=== PATIENT | male | born 1935 | race Caucasian/White ===

== ENCOUNTER 2024-08-23 10:47 | Inpatient (IN) | payer MEDICARE, OTHER ==
[~2024-08-23] VITALS: Ht 177.8 cm; Wt 63.3 kg
[~2024-08-23 10:47] MED LIST: ASPI-1265 PO; LEVO50TA8 PO; LOVA10TA PO
--- NOTE | 2024-08-23 11:00 | ELECTROCARDIOGRAPH REPORT ---
[facility] Test Date: 2024-08-23 Test Time: 10:58:51 Pat Name: SELVIN WARD Department: EMERGENCY ROOM Room: ORTHO [facility] Gender: M [employer] Installer: MICAH : 1935 Requested By: ROMAN MILLER Order Number: [id number] Reading MD: Dr. Paul Monreal Measurements Intervals [place] Rate: 58 P: 32 [place]: 184 QRS: -51 QRSD: 126 T: 14 QT: 432 QTc: 425 Interpretive Statements Sinus bradycardia Nonspecific IVCD with LAD Consider anterior infarct Electronically Signed On 08-26-2024 18:35:[address] Paul Monreal Please click the below link to view image of tracing.
--- NOTE | 2024-08-23 11:14 | RADIOLOGY REPORT ---
CHEST RADIOGRAPH Indication: CP Technique: Single frontal view of the chest was obtained COMPARISON: None FINDINGS: Lines and Tubes: None Lungs: Clear Pleura: No effusion. No pneumothorax. Cardiomediastinal contours: Unremarkable Bones: Unremarkable IMPRESSION: No acute disease.
[2024-08-23 11:21] LABS: HEMOGLOBIN 9.7 g/dl (14.0-17.9); LYMPHOCYTES # (AUTO) 1.1 X10'3 (1.1-4.8); MEAN PLATELET VOLUME 7.6 FL (7.4-10.4); MONOCYTES # (AUTO) 0.2 X10'3 (0-0.9); NEUTROPHILS # (AUTO) 1.8 X10'3 (1.8-7.7); WHITE BLOOD COUNT 3.2 X10'3 (4.5-11.0)
[2024-08-23 11:23] LABS: BASOPHILS % (AUTO) 0.9 % (0-1); EOSINOPHILS % (AUTO) 0.9 % (0-6); HEMATOCRIT 28.8 % (42.0-52.0); MEAN CORPUSCULAR HEMOGLOBIN 29.4 PG (27.0-31.0); MEAN CORPUSCULAR HGB CONC 33.6 g/dL (33.0-36.5); MEAN CORPUSCULAR VOLUME 87.6 FL (78-98); MONOCYTES % (AUTO) 7.4 % (2-12); NEUTROPHILS % (AUTO) 56.8 % (42-75); PLATELET COUNT 236 X10'3 (140-440); RED BLOOD COUNT 3.29 X10'6 (4.70-6.10); RED CELL DISTRIBUTION WIDTH 17.6 % (11.5-14.5)
[2024-08-23 12:02] LABS: ALBUMIN 3.5 G/DL (3.4-5.0); ANION GAP 8 (8-16); BLOOD UREA NITROGEN 18 MG/DL (7-18); BUN/CREATININE RATIO 15.8 (10.0-20.0); CHLORIDE 103 MMOL/L (99-107); CREATININE 1.14 MG/DL (0.60-1.10); SODIUM 136 MMOL/L (135-145); TOTAL CARBON DIOXIDE 25.2 MMOL/L (24-32); eCRCL 42 ML/MIN; eGFR 61 ML/MIN
[2024-08-23 12:04] LABS: GLUCOSE 108 MG/DL (70-104)
--- NOTE | 2024-08-23 12:08 | Physician Documentation ---
History of Present Illness ~ Chief Complaint: Shortness of Breath Stated Complaint: SOB Time Seen by MD: 11:43 Primary Medical Doctor: EMETERIO CURRIE HPI 88-year-old male presenting with shortness of breath. The patient reports that is approximately a six days ago he was playing golf when as he walked across the golf course he noticed he is getting more short of breath than usual. He states that this kind of continued throughout the day and he later went home and did not think much of it. Since that time he notices that when he is exerting himself he is getting more short of breath than usual. The shortness of breath and resolves with rest. He otherwise denies any chest pain, cough, fever or any other associated symptoms. Medication Reconciliation Allergies: Coded Allergies: No Known Allergies (Unverified , 01/25/14) Scheduled Cholestyramine (with Sugar) (Cholestyramine Powder), 1 PACKET PO DAILY, (Reported) Levothyroxine Sodium (Levothyroxine Sodium), 1 TABLET PO DAILY, (Reported) Lovastatin (Mevacor), 10 MG PO HS, (Reported) Pantoprazole Sodium (PROTONIX tablet), 40 MG PO BID Rosuvastatin Calcium (Rosuvastatin Calcium), 1 TAB PO DAILY, (Reported) Discontinued Medications Aspirin (Aspirin), 2 TAB.CHEW PO DAILY, (Reported) Past Medical History Past Surgical History: cancer surgery Other Past Surgical History: Lymph nodes removed Alcohol Use: None Drug Use: none Lives with: Spouse Lives In: Home Review of Systems All Other Systems at this time: Reviewed and Negative Physical Exam Vital Signs: Temperature: 97.6, Source: Temporal, Heart Rate: 59, Respiratory Rate: 15, BP: 137/71, Pulse Oximetry: 100, Weight: 63.300 Physical Exam I have reviewed the triage vitals. CONST: Well developed and well nourished. In no acute distress HENT: Head Atraumatic EYES: Pupils are equal, round and reactive to light. Normal conjunctiva NECK: Normal range of motion. Supple. CARDIO: Normal rate and regular rhythm. No murmurs, rubs, or gallops. S1, S2. PULM/CHEST: No respiratory distress. Lungs clear to auscultation. No wheeze ABD: Soft and nontender. Nondistended. Bowel sounds normal. No guarding. Rectal: External hemorrhoids present MSK: No edema. No deformity. NEURO: Alert and oriented to person, place and time. Moving all extremities SKIN: Warm and dry. PSYCH: Normal mood and affect. Good eye contact. Progress Results/Orders Results/Orders Orders - ROMAN MILLER MD Chest,Single View (08/23/24 10:56) Monitor (08/23/24 10:56) Saline Lock (08/23/24 10:56) Oxygen (08/23/24 10:56) Electrocardiogram (08/23/24 10:56) Hs Troponin I W Calculations (08/23/24 13:56) Page Hospitalist (08/23/24 13:56) Fill Out Med Reconciliation (08/23/24 13:56) Page Hospitalist (08/23/24 14:01) Fill Out Med Reconciliation (08/23/24 14:01) Completed Orders - ROMAN MILLER MD Chest,Single View (08/23/24 10:56) Cbc/Diff (08/23/24 10:56) BMP (08/23/24 10:56) Electrocardiogram (08/23/24 10:56) Hs Troponin I W Calculations (08/23/24 10:56) Hs Troponin I W Calculations (08/23/24 12:56) Occult Bld Stool (08/23/24 13:41) Pt Inr (08/23/24 14:04) PTT (08/23/24 14:04) Pantoprazole 40mg/Ns 100ml Bag (Protonix (08/23/24 16:00) MG (08/23/24 11:04) PHOS (08/23/24 11:04) TSH (08/23/24 11:04) Hgb A1c (08/23/24 11:04) Laboratory Tests Test 08/23/24 11:04 08/23/24 13:08 White Blood Count 3.2 L Red Blood Count 3.29 L Hemoglobin 9.7 L Hematocrit 28.8 L Mean Corpuscular Volume 87.6 Mean Corpuscular Hemoglobin 29.4 Mean Corpuscular Hemoglobin Concent 33.6 Red Cell Distribution Width 17.6 H Platelet Count 236 Mean Platelet Volume 7.6 Neutrophils (%) (Auto) 56.8 Lymphocytes (%) (Auto) 34.0 Monocytes (%) (Auto) 7.4 Eosinophils (%) (Auto) 0.9 Basophils (%) (Auto) 0.9 Neutrophils # (Auto) 1.8 Lymphocytes # (Auto) 1.1 Monocytes # (Auto) 0.2 Eosinophils # (Auto) 0.0 Basophils # (Auto) 0.0 CBC Comment Prothrombin Time 10.3 INR International Normalized Ratio 1.0 Activated Partial Thromboplast Time 25 Coagulation Comments Sodium Level 136 Potassium Level 4.0 Chloride Level 103 Carbon Dioxide Level 25.2 Anion Gap 8 Blood Urea Nitrogen 18 Creatinine 1.14 H Estimated GFR/1.73 m2 61 BUN/Creatinine Ratio 15.8 Glucose Level 108 H Hemoglobin A1c 4.5 Calcium Level 9.0 Phosphorus Level 2.8 Magnesium Level 1.9 Troponin I High Sensitivity 10 7 Pro-B-Type Natriuretic Peptide 238 Albumin 3.5 Thyroid Stimulating Hormone (TSH) 5.33 H Chemistry Comments Troponin I High Sens Percent Delta 30 Troponin I Hi Sens Absolute Change -3 EKG/XRAY/CT/US/VASC/MRI EKG : Additional Comment EKG as interpreted by me showing normal sinus rhythm with slight sinus bradycardia at a rate of 58 beats per minute, no ischemia, normal axis Chest X-Ray : Additional Comments CHEST RADIOGRAPH Indication: CP Technique: Single frontal view of the chest was obtained COMPARISON: None FINDINGS: Lines and Tubes: None Lungs: Clear Pleura: No effusion. No pneumothorax. Cardiomediastinal contours: Unremarkable Bones: Unremarkable IMPRESSION: No acute disease. Medical Decision Making Additional Infomation 88-year-old male presenting with intermittent shortness of breath with activity. His lab workup does indicate a low hemoglobin of 9.7. This is likely what is causing his shortness of breath. Upon further questioning the patient states that he had some hemorrhoids that has been bleeding for several months. He reports that the bleeding recently decreased as he stopped taking 81 mg daily aspirin as was directed by his primary care physician. Additionally he indicated to me that for some period of time he was having some dark black stools. Remainder of the patient's blood work is unremarkable. Stool occult blood test was positive. I did discuss this case with Dr. Corona, GI specialist who recommended that we admit the patient for a colonoscopy and possibly upper GI endoscopy. I discussed this with the patient and he is amenable for this. Patient will be admitted to the inpatient hospitalist service. Departure Disposition: ADMITTED INPATIENT Admitted to Inpatient Unit: to hospitalist Impression: Primary Impression: Anemia Additional Impression: GI bleed Referrals: NO PRIMARY CARE PROVIDER (PCP) Prescriptions Pantoprazole Sodium (PROTONIX tablet) 40 Mg Tablet.dr 40 MG PO BID, #60 TAB.SR Prov: VASHTI SANTIAGO, LILIANA 08/25/24 [facility] Form Admit Criteria Met or Not Met: YES Signature Scribe Signature: 1 Attestation: 1 ROMAN MILLER MD Aug 23, 2024 12:08
[2024-08-23 14:25] LABS: APTT 25 SECONDS (22-32); PROTHROMBIN TIME 10.3 SECONDS (9.0-12.0)
[2024-08-23] MEDS ORDERED: magnesium hydroxide 30ml (MOM) UD suspension PO PRN (15:50)
[2024-08-23] MEDS ORDERED: magnesium sulf-water 4G/100mL 100 ML IV PRN (15:50)
[2024-08-23] MEDS ORDERED: metoclopramide 5 mg/ml inj IV PRN (15:50)
[2024-08-23] MEDS ORDERED: mag hydrox/Alum hydrox/simeth 30ml oral suspension PO PRN (15:50)
[2024-08-23] MEDS ORDERED: potassium Cl 20 mEq SR tablet PO PRN ×2 (15:50)
[2024-08-23] MEDS ORDERED: acetaminophen 325mg tablet PO PRN (15:50)
[2024-08-23] MEDS ORDERED: docusate sod 100mg capsule PO PRN (15:50)
[2024-08-23] MEDS ORDERED: magnesium sulf-water 2g/50mL 50 ML IV PRN (15:50)
[2024-08-23] MEDS ORDERED: potassium Cl 40MEQ/1/2NS 520ml 520 ML IV PRN (15:50)
[2024-08-23] MEDS ORDERED: magnesium Cl slow-release 64mg tablet PO PRN (15:50)
[2024-08-23] MEDS ORDERED: morphine 2 MG/ML inj. syringe IV PRN ×2 (15:50)
[2024-08-23] MEDS ORDERED: ondansetron/PF 4mg/2ml inj IV PRN (15:50)
[2024-08-23] MEDS ORDERED: pantoprazole 40MG/NS 100ML BAG 100 ML IV SCH (16:00)
--- NOTE | 2024-08-23 16:12 | HISTORY AND PHYSICAL-Residence ---
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 He is living with his spouse at his home. He is seeing PCP Dr Lutz, at [facility]. He is still driving and enjoying his life with pretty active sports. He is fully ambulatory. He endorsed that he started having sudden shortness of breath along with slight lightheadeness and dizziness since last Thursday while he was walking around and playing golf made him stopped playing. He denies any hx of orthopnea, PND, hemoptysis, bilateral pedal edema, chest pressure discomfort and radiating pain, palpitations, nausea and vomiting. He felt the generalized weakness and tiredness since Last Thursday. He never experienced that sort of feeling before. He started taking baby ASA since last 6 months and stopped taking it a month ago. He occasionally drinks alcohol one or two per month. He denied using any OTC NSAIDs. He noticed that black colored stool a week ago and still having one time per day. He denies any H&M, black colored emesis, abd pain and LBM. He did not take any colored food and iron tablets on daily basic. He was bleeding per rectum from his hemorrhoids but it became less when he started ASA on last 6 months. Never diagnosed with recent cancer and treated with therapy. He denied any recent unintentional dramatic weight loss and declining appetitie and night sweat with low grade fever. 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 He is seeing PCP Dr Lutz, at [facility]. He is still driving and enjoying his life with pretty active sports. He is fully ambulatory. He is a lifetime nonsmoker, did not use any illicit drugs. He drinks one two to light drinks in a month. Alcohol Use: None Drug Use: None Lives with: Spouse Lives In: Home ROS All Other Systems: Reviewed and Negative ROS ROS were reviewed WNL except for the above-mentioned in HPI Exam Vitals: Vital Signs Date Time Temp Pulse Resp B/P (MAP) Pulse Ox O2 Delivery O2 Flow Rate FiO2 08/23/24 12:08 16 08/23/24 12:08 97.6 47 100 0 General: General: Pleasant friendly gentleman, Well alert, well oriented, not confused, not agitated, not in acute distress, well cooperated during the physical. HEENT: HEENT: Conjunctive are slightly pale, sclerae clear, no icterus, pupil is equal in both sides, reactive to light, no ear discharge, no pharyngeal erythema or an edema, mouth and lips are dry. Neck: Neck: Supple, no JVD, no lymphadenopathy and thyromegaly. Chest: Lungs:Equal air entry on both lungs, no additional sounds Cardiovascular: Heart: S1-S2 regular sinus rhythm and, regular rate, no gallops, no rubs, no murmurs Abdomen: Abdomen: Left upper flank surgical scar, No visible peristalsis, Bowel sounds present on auscultation, soft, nontender, no guarding, no rigidity Extremities: Extremities: No obvious deformities, no pitting edema bilaterally, capillary refill intact, able to wiggle toes both sides, peripheral pulsations are intact on both sides Central Nervous System: MONOTYPE CASTER: No focal neurological deficits, no motor and sensory weakness in all 4 extremities, could move all 4 extremities Musculoskeletal: Musculoskeletal: No joint swelling, deformities, inflammations, and no scoliosis and back tenderness Skin: Skin: No active skin lesions and rashes Diagnostic Data Last Recorded Lab Results: 08/23/24 1104 08/23/24 1104 Diagnostic Data: Laboratory Tests Test 6/24/25 11:04 Prothrombin Time 10.3 SECONDS (9.0-12.0) INR International Normalized Ratio 1.0 INR Activated Partial Thromboplast Time 25 SECONDS (22-32) Coagulation Comments Advance Care Planning Advanced Care plannin - 30 Minutes Additional Plan An 88 years old very pleasant funny healthy man with past medical history of HLD, 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 # symptomatic normochromic normocytic anemia # Possible GI bleeding # Hx of hemorrhoids -last time colonoscopy was 3-5 years ago, did not report for any precancerous/cancerous/polyps lesions and was told to stopped the colonoscopy at the time. Did not remember for any last endoscopy. -FOBT still pending -Hold ASA -Dr Corona order desk caller GI was consulted and appreciate it- planning to have colonoscopy tomorrow -Currently on clear liquid as per pt's requested, and NPO after midnight and prep with GoLYTELY and Mg citrate solution over night. -On IV Protonix drip for possible Upper GI Bleeding and will consider endoscopy for any possible upper GI Bleeding -continue telemetry -IV NS 50 ml/hr # JAYA - mostly from the pre renal (Renal tubular stasis) -baseline was 0.6 in last 10 years -IV fluid, monitor I's and O's # Non specific leucopenia- mostly from hemodilution -monitor daily # HLD # Hypothyroidism # Hyperglycemia -Continue statin and Levothyroxine after med rec is done -most probably from the post radiation hypothyroidism -pending rechecked TSH, lipid profile and HGB A1c -continue daily RBS monitoring CODE STATUS: DNR DNI DVT prophylaxis: Sc heparin Analgesia/sedation: IV morphine as needed Lines/tubes: PIV GI prophylaxis: Protonix Nutrition: Clear liquid, NPO after midnight for colonoscopy tomorrow Prognosis: Guarded Disposition: Continue medical management including IV Protonix, fluids, colonoscopy overnight prep, proceed with plan tomorrow colonoscopy, follow up with GI, PT eval and DC plan. Resident MD attestation: Patient was seen, examined and discussed with attending MD, Dr. Kandi SANTIAGO MD Internal Medicine Resident, PGY2 [facility] Date of Service: Aug 23, 2024 Billing Provider: ASIM BAKER MD, TIN, RES Aug 23, 2024 16:12
[2024-08-23] MEDS ORDERED: magnesium citrate 296ml oral solution PO ONE (16:30)
[2024-08-23 17:00] LABS: MAGNESIUM 1.9 MG/DL (1.5-2.4); PHOSPHORUS 2.8 MG/DL (2.3-4.5); THYROID STIMULATING HORMONE 5.33 ulU/ml (0.34-4.50)
[2024-08-23] MEDS: normal saline 1000ml 1,000 ML IV SCH (17:04)
[2024-08-23] MEDS: PEG 3350/Na sulf,bicarb,Cl/KCl oral sol 4 liter bottle PO ONE (17:04)
[2024-08-23 17:17] LABS: HEMOGLOBIN A1C 4.5 % (4.5-6.2)
[2024-08-23 17:19] LABS: OCCULT BLOOD STOOL POSITIVE (Neg)
--- NOTE | 2024-08-23 17:44 | CONSULTATION REPORT - RESIDENT ---
Consult Providers to CC Resident Creating Document: JACKIEJavidCHRIS RES History of Present Illness Reason for Admit\Complaint: Dizziness, weakness History of Present Illness The patient is an 88-year-old male with a history of hyperlipidemia (HLD), right throat cancer with lymphadenopathy status post systemic chemotherapy and radiation therapy (XRT), hypothyroidism on levothyroxine, left renal cell carcinoma (RCC) status post partial nephrectomy, status post cholecystectomy, blood clot in the right arm, and chronic hemorrhoids, presenting with acute onset of generalized weakness, fatigue, shortness of breath (SOB), and melena for one week. Symptoms began last Thursday with sudden SOB, lightheadedness, and dizziness while playing golf, prompting cessation of activity. He reports black-colored stools occurring daily for the past week but denies hematochezia, bright red blood per rectum, hematemesis, or abdominal pain. He denies orthopnea, paroxysmal nocturnal dyspnea (PND), chest pain, nausea, vomiting, and significant weight loss. The patient has never undergone an esophagogastroduodenoscopy (EGD). His last colonoscopy, performed three years ago, was reported as normal. He denies NSAID use but reports taking low-dose aspirin (81 mg daily) for six months, which he discontinued one month ago. He has no history of dietary changes, iron supplementation, or consumption of foods that could mimic melena (e.g., black licorice, blueberries). The patient remains fully ambulatory, continues to drive, and leads an active lifestyle, including regular sports activities. 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 He is seeing PCP Dr Lutz, at [facility]. He is still driving and enjoying his life with pretty active sports. He is fully ambulatory. He is a lifetime nonsmoker, did not use any illicit drugs. He drinks one two to light drinks in a month. ROS ROS Reviewed in full, pertinent positive per HPI. Exam Vitals: Vital Signs Date Time Temp Pulse Resp B/P (MAP) Pulse Ox O2 Delivery O2 Flow Rate FiO2 08/23/24 17:23 97.6 55 16 106/55 (72) 98 0 General: General: awake, alert oriented to place, time, and person HEENT: Marked pallor present, no icterus, moist mucous membranes Neck: No masses and tenderness Resp: normal breath sounds bilaterally and no wheezing Chest: Normal expansion Cardiovascular: No murmur,regular Rate and rhythm, variable S1 and S2 without murmur, rub or gallop Abdomen: Soft and nontender, no organomegaly, no guarding and rigidity, bowel sounds present Neuro: No focal weakness in the upper and lower limb muscles, power of the muscles 5/5 bilateral upper and lower extremities, normal reflexes bilaterally. Cranial nerves intact Extremities: No lower extremity edema, No cyanosis,clubbing Skin: Warm and Dry. No lesions Psych: Normal affect Diagnostic Data Last Recorded Lab Results: 08/23/24 1104 08/23/24 1104 Diagnostic Data: Laboratory Tests Test 08/23/24 11:04 Prothrombin Time 10.3 SECONDS (9.0-12.0) INR International Normalized Ratio 1.0 INR Activated Partial Thromboplast Time 25 SECONDS (22-32) Coagulation Comments Additional Plan 1. Symptomatic Normochromic Normocytic Anemia with Possible GI Bleeding Likely secondary to a GI bleed, as suggested by melena and symptoms of fatigue and SOB. The source may be upper (gastritis, peptic ulcer) or lower GI. Never had an EGD; thus, upper GI bleeding cannot be excluded. Last colonoscopy (three years ago) was normal. Plan: Schedule colonoscopy tomorrow; bowel preparation with GoLYTELY and magnesium citrate starting tonight. Plan for EGD to evaluate potential upper GI bleeding. Initiate IV Protonix drip. Monitor hemoglobin/hematocrit (H/H) closely. FOBT pending to confirm the presence of a GI bleed. NPO after midnight in preparation for procedures. 2. Chronic Hemorrhoids May contribute to rectal bleeding but are unlikely the source of melena. Plan: Address during colonoscopy if significant findings are present. 3. Acute Kidney Injury (JAYA) Likely pre-renal in origin, given the baseline creatinine of 0.6 and evidence of tubular stasis. Plan: Administer IV fluids (NS at 50 mL/hr). Monitor urine output and daily renal function tests. 4. Leukopenia Likely secondary to hemodilution. Plan: Monitor complete blood count (CBC) daily. 5. Hyperlipidemia and Hypothyroidism Chronic conditions managed with current medications. 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 Plan: Continue statin and levothyroxine. Recheck TSH, lipid profile, and HbA1c. 6. Hyperglycemia Mild and possibly stress-induced or secondary to systemic response. Plan: Monitor random blood glucose (RBS) daily. Code status: DNR/DNI. DVT prophylaxis with SCDs. Analgesia with IV morphine as needed. Nutrition: Clear liquids today, NPO after midnight. Continue telemetry monitoring for hemodynamic stability. Prognosis: Guarded. Chris Link Resident Date of Service: Aug 23, 2024 Billing Provider: NESLON ALAN MD, GAURAV, RES Aug 23, 2024 17:44
[2024-08-23] MEDS: K and/or MAG REPLACEMENT MC SCH (20:00)
[2024-08-23] MEDS ORDERED: heparin, porcine 5000 units/ml vial SQ SCH (20:00)
[2024-08-23 21:05] VITALS: BP 143/44; PULSE 56; RESP 16; TEMP 97.5; O2SAT 99
[2024-08-23] MEDS ORDERED: ROSU5TAB51 PO (22:15)
[2024-08-23] MEDS ORDERED: CHOL378P14 PO (22:15)
[2024-08-23] MEDS: atorvastatin 10mg tablet PO SCH (22:25)
[2024-08-24] VITALS (11 sets, daily range): BP systolic 79–128; BP diastolic 33–74; PULSE 55–77; RESP 12–20; TEMP 97.5–98.7; O2SAT 95–100
[2024-08-24 05:23] LABS: EOSINOPHILS % (AUTO) 1.1 % (0-6); LYMPHOCYTES # (AUTO) 1.1 X10'3 (1.1-4.8); MONOCYTES # (AUTO) 0.3 X10'3 (0-0.9); NEUTROPHILS # (AUTO) 1.8 X10'3 (1.8-7.7)
[2024-08-24 05:27] LABS: BASOPHILS % (AUTO) 1.4 % (0-1); HEMATOCRIT 26.7 % (42.0-52.0); LYMPHOCYTES % (AUTO) 34.2 % (21-51); MEAN CORPUSCULAR HEMOGLOBIN 29.3 PG (27.0-31.0); MEAN CORPUSCULAR HGB CONC 33.7 g/dL (33.0-36.5); MEAN CORPUSCULAR VOLUME 86.8 FL (78-98); MEAN PLATELET VOLUME 7.5 FL (7.4-10.4); MONOCYTES % (AUTO) 9.9 % (2-12); NEUTROPHILS % (AUTO) 53.4 % (42-75); PLATELET COUNT 187 X10'3 (140-440); RED BLOOD COUNT 3.08 X10'6 (4.70-6.10); RED CELL DISTRIBUTION WIDTH 16.9 % (11.5-14.5); WHITE BLOOD COUNT 3.3 X10'3 (4.5-11.0)
[2024-08-24 06:01] LABS: ALANINE AMINOTRANSFERASE 36 U/L (12-78); ALBUMIN 3.4 G/DL (3.4-5.0); ALBUMIN/GLOBULIN RATIO 1.1 (1.1-1.5); ALKALINE PHOSPHATASE 97 IU/L (46-116); ANION GAP 8 (8-16); ASPARTATE AMINO TRANSFERASE 39 U/L (10-37); BILIRUBIN,TOTAL 1.8 MG/DL (0.1-1.0); BLOOD UREA NITROGEN 18 MG/DL (7-18); BUN/CREATININE RATIO 16.8 (10.0-20.0); CALCIUM 8.8 MG/DL (8.5-10.1); CHLORIDE 104 MMOL/L (99-107); CHOL/HDL RATIO 2.2 (0.00-4.99); CHOLESTEROL 92 MG/DL (0-200); CREATININE 1.07 MG/DL (0.60-1.10); FREE T4 (FREE THYROXINE) 1.13 NG/DL (0.73-1.40); HDL CHOLESTEROL 42 MG/DL (35-60); LDL CHOLESTEROL 40 MG/DL (50-100); SODIUM 138 MMOL/L (135-145); TOTAL CARBON DIOXIDE 25.6 MMOL/L (24-32); TOTAL PROTEIN 6.6 G/DL (6.4-8.2); TRIGLYCERIDES 56 MG/DL (20-135); eCRCL 44 ML/MIN; eGFR 66 ML/MIN
[2024-08-24 06:22] LABS: GLUCOSE 90 MG/DL (70-104)
[2024-08-24] MEDS: levoTHYROXINE 25mcg tablet PO SCH (07:28)
[2024-08-24] MEDS: pantoprazole 40MG/NS 100ML BAG 100 ML IV SCH (07:28)
[2024-08-24] MEDS ORDERED: fentaNYL/PF 50MCG/1 ML 2ML syringe ONE (13:21)
[2024-08-24] MEDS ORDERED: MIDAZolam 1 MG/ML 5ML VIAL ONE (13:21)
[2024-08-24] MEDS ORDERED: LIDOcaine 2% (20mg/ml) 5ml vial ONE (13:22)
[2024-08-24] MEDS ORDERED: propofol inj 20 ML IV ONE (13:22)
[2024-08-24] MEDS ORDERED: ringers solution, lactated 1000ml IV soln IV ONE (13:57)
--- NOTE | 2024-08-24 18:02 | PROGRESS NOTE- Residence ---
Progress Note - Resident Providers to CC Resident Creating Document: VASHTI SANTIAGO RES ~ Antibiotic Timeout Antibiotic Ordered?: No Subjective Pt was seen with his at the bedside this morning. He is not having any syncope lightheadness and dizziness episodes since he was admitted. 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 He will be taken to the GI Lab for today both EGD and colonoscopy this afternoon. He is currently on NPo. Patient and the wants to change the code status into full code from DNR DNI today. Objective Vital Signs Date Time Temp Pulse Resp B/P (MAP) Pulse Ox O2 Delivery O2 Flow Rate FiO2 08/24/24 15:00 58 12 104/51 98 Room Air 08/24/24 14:30 6.0 08/24/24 12:56 98.7 Result Diagram: 08/24/24 0451 08/24/24 045 Vitals were stable at the moment with pulse 58/minute, RR 20/minute, BP 104/51 mm Hg, pulse oximetry 98% on room air. On exam, General: Pleasant friendly gentleman, Well alert, well oriented, not confused, not agitated, not in acute distress, well cooperated during the physical. HEENT: Conjunctive are slightly pale, sclerae clear, no icterus, pupil is equal in both sides, reactive to light, no ear discharge, no pharyngeal erythema or an edema, mouth and lips are dry. Neck: Supple, no JVD, no lymphadenopathy and thyromegaly. 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: No focal neurological deficits, no motor and sensory weakness in all 4 extremities, could move all 4 extremities Musculoskeletal: No joint swelling, deformities, inflammations, and no scoliosis and back tenderness Skin: No active skin lesions and rashes Coagulation Studies Laboratory Tests Test 08/23/24 11:04 Prothrombin Time 10.3 SECONDS (9.0-12.0) INR International Normalized Ratio 1.0 INR Activated Partial Thromboplast Time 25 SECONDS (22-32) Coagulation Comments Assessment Assessment An 88 years old very pleasant funny healthy man with past medical history of HLD, 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 Plan Plan # symptomatic normochromic normocytic anemia # GI bleeding # Hx of hemorrhoids 08/24/2024: FPBT +, EGD and colonoscopy was done this morning, reported for EGD: normal esophagus, erythematous mucosa in the antrum and prepyloric region of the stomach, biopsed, normal duodenal bulb and second portion of the duodenum. Colonoscopy: prep for colonoscopy was inadequate, stool in the examination, non bleeding internal hemorrhoids and on specimens were collected, recommended to repeat colonoscopy in 3 months for screening purposes. -no complications including abdominal pain, nausea and vomiting -gradually advanced the diet from full liquid to regular as per tolerated -monitor H&H tonight around 6:00 a.m. and in the morning again -plan to discharge tomorrow -continue IV Protonix, plan to switch to oral b.i.d. tomorrow -GI team sign out 08/23/2024:-last time colonoscopy was 3-5 years ago, did not report for any precancerous/cancerous/polyps lesions and was told to stopped the colonoscopy at the time. Did not remember for any last endoscopy. -FOBT still pending -Hold ASA -Dr Corona outside sales account manager GI was consulted and appreciate it- planning to have colonoscopy tomorrow -Currently on clear liquid as per pt's requested, and NPO after midnight and prep with GoLYTELY and Mg citrate solution over night. 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 Resident MD attestation: Patient was seen, examined and discussed with attending , Dr. Kandi SANTIAGO MD Internal Medicine Resident, PGY2 [facility] Date of Service: Aug 24, 2024 Billing Provider: ASIM BAKER MD, TIN, RES Aug 24, 2024 18:02
[2024-08-24 18:20] LABS: HEMATOCRIT 25.5 % (42.0-52.0); HEMOGLOBIN 8.4 g/dl (14.0-17.9); MEAN CORPUSCULAR HEMOGLOBIN 29.2 PG (27.0-31.0); MEAN CORPUSCULAR HGB CONC 33.1 g/dL (33.0-36.5); MEAN CORPUSCULAR VOLUME 88.2 FL (78-98); MEAN PLATELET VOLUME 7.4 FL (7.4-10.4); PLATELET COUNT 176 X10'3 (140-440); RED BLOOD COUNT 2.89 X10'6 (4.70-6.10); RED CELL DISTRIBUTION WIDTH 17.2 % (11.5-14.5); WHITE BLOOD COUNT 3.5 X10'3 (4.5-11.0)
[2024-08-25 05:05] LABS: BASOPHILS % (AUTO) 0.7 % (0-1); EOSINOPHILS % (AUTO) 0.9 % (0-6); HEMATOCRIT 22.8 % (42.0-52.0); HEMOGLOBIN 7.7 g/dl (14.0-17.9); LYMPHOCYTES # (AUTO) 0.9 X10'3 (1.1-4.8); LYMPHOCYTES % (AUTO) 27.6 % (21-51); MEAN CORPUSCULAR HEMOGLOBIN 29.1 PG (27.0-31.0); MEAN CORPUSCULAR HGB CONC 33.6 g/dL (33.0-36.5); MEAN CORPUSCULAR VOLUME 86.6 FL (78-98); MEAN PLATELET VOLUME 7.6 FL (7.4-10.4); MONOCYTES # (AUTO) 0.4 X10'3 (0-0.9); MONOCYTES % (AUTO) 11.4 % (2-12); NEUTROPHILS # (AUTO) 1.9 X10'3 (1.8-7.7); NEUTROPHILS % (AUTO) 59.4 % (42-75); PLATELET COUNT 157 X10'3 (140-440); RED BLOOD COUNT 2.64 X10'6 (4.70-6.10); RED CELL DISTRIBUTION WIDTH 16.8 % (11.5-14.5); WHITE BLOOD COUNT 3.1 X10'3 (4.5-11.0)
[2024-08-25 05:32] LABS: ALANINE AMINOTRANSFERASE 25 U/L (12-78); ALBUMIN 2.7 G/DL (3.4-5.0); ALKALINE PHOSPHATASE 83 IU/L (46-116); ANION GAP 6 (8-16); ASPARTATE AMINO TRANSFERASE 27 U/L (10-37); BILIRUBIN,TOTAL 1.5 MG/DL (0.1-1.0); BLOOD UREA NITROGEN 17 MG/DL (7-18); BUN/CREATININE RATIO 17.2 (10.0-20.0); CALCIUM 8.5 MG/DL (8.5-10.1); CHLORIDE 108 MMOL/L (99-107); CREATININE 0.99 MG/DL (0.60-1.10); MAGNESIUM 1.9 MG/DL (1.5-2.4); SODIUM 140 MMOL/L (135-145); TOTAL CARBON DIOXIDE 26.1 MMOL/L (24-32); TOTAL PROTEIN 5.3 G/DL (6.4-8.2); eCRCL 48 ML/MIN; eGFR 72 ML/MIN
[2024-08-25 05:34] LABS: GLUCOSE 87 MG/DL (70-104)
[2024-08-25 06:00] VITALS: BP 116/53; PULSE 61; RESP 16; TEMP 98.5; O2SAT 98
[2024-08-25 10:08] VITALS: BP 111/50; PULSE 58; RESP 13; TEMP 98.1; O2SAT 99
[2024-08-25] MEDS ORDERED: PANT-47 PO (10:30)
--- NOTE | 2024-08-25 11:14 | DISCHARGE SUMMARY-Residence ---
Discharge Summary Providers to CC Resident Creating Document: VASHTI SANTIAGO, LILIANA ~ Discharge Summary Admission Diagnosis: Symptomatic anemia w/ possible GI bleeding Hospital Course DATE OF ADMISSION: 08/23/2024 DATE OF DISCHARGE: 08/25/2024 Discharge Diagnosis\Comment: # symptomatic normochromic normocytic anemia # GI bleeding from ASA, s/p EGD and Colonoscopy on 08/24/24 # Hx of hemorrhoids # JAYA was ruled out # Non specific leucopenia- mostly from hemodilution # HLD # Hypothyroidism # Hyperglycemia Operations\Procedures: s/p EGD and Colonoscopy on 08/24/[address] Corona, GI Consultants: Dr Corona, GI Complications: None Condition on DC: Stable New Medications: Pantoprazole Sodium (PROTONIX tablet) 40 Mg Tablet.dr 40 MG PO BID, #60 TAB.SR Continued Medications: Cholestyramine (with Sugar) (Cholestyramine Powder) 4 Gram Powder 1 PACKET PO DAILY Levothyroxine Sodium (Levothyroxine Sodium) 50 Mcg Tablet 1 TABLET PO DAILY Lovastatin (Mevacor) 10 Mg Tablet 10 MG PO HS Rosuvastatin Calcium (Rosuvastatin Calcium) 5 Mg Tablet 1 TAB PO DAILY Discontinued Medications: Aspirin (Aspirin) 81 Mg Tab.chew 2 TAB.CHEW PO DAILY, TAB.CHEW Discharge Summary: An 88 years old very pleasant funny healthy man with past medical history of HLD, 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 Hospital Course: He was hospitalized for further investigation and management plan for his symptomatic anemia and suspected GI bleeding with FOBT positive. His last time colonoscopy was 3-5 years ago, did not report for any precancerous/cancerous/polyps lesions and was told to stop the colonoscopy at the time. He did not remember for any last endoscopy. FOBT positive with no painful abdomen and H&M on admission except for the black tarry stool. We held his Aspirin on admission and continue IV Protonix drip until discharge. GI Dr Corona was consulted and performed the EGD and colonoscopy on 08/24/24 stated that EGD: normal esophagus, erythematous mucosa in the antrum and prepyloric region of the stomach, biopsed, normal duodenal bulb and second portion of the duodenum. Colonoscopy: prep for colonoscopy was inadequate, stool in the examination, non bleeding internal hemorrhoids and on specimens were collected, recommended to repeat colonoscopy in 3 months for screening purposes. He was given IV normal saline 50 mL/hr before he finished his EGD and colonoscopy, daily monitoring of renal function and trending down creatinine during hospitalization. We tati nued statin and Levothyroxine after med rec is reviewed and reconciled appropriately. TSH of 5.33, free T4 1.13 with a having any clinical symptoms, most probably from the subclinical hypothyroidism for which 4-6 weeks of TSH recheck was recommended, with a normal lipid profile and HGB A1c -4.5. All of the patient's and family's concerns and questions were addressed with the best knowledge of our team before he was discharged. All of his labs were reviewed WNL with a WBC 3.1, hemoglobin 8.3, hematocrit 25. 3, platelet count 188, normal coagulation profile, serum sodium 140, potassium four, chloride 108, BUN 17, creatinine 0.99, RBS 87. All of his vitals were stable at the moment with temp 98.1 F, ND 58/minute, RR 20/minute, BP 111/50 mm Hg, pulse oximetry 99% on room air. On exam, General: Pleasant friendly gentleman, Well alert, well oriented, not confused, not agitated, not in acute distress, well cooperated during the physical. HEENT: Conjunctive are slightly pale, sclerae clear, no icterus, pupil is equal in both sides, reactive to light, no ear discharge, no pharyngeal erythema or an edema, mouth and lips are dry. Neck: Supple, no JVD, no lymphadenopathy and thyromegaly. Lungs:Equal air entry on both lungs, no additional sounds Heart: S1-S2 regular sinus rhythm and, regular rate, no gallops, no rubs, no murmurs Abdomen: Left upper flank surgical scar, No visible peristalsis, Bowel sounds present on auscultation, soft, nontender, no guarding, no rigidity, external hemorrhoids Extremities: No obvious deformities, no pitting edema bilaterally, capillary refill intact, able to wiggle toes both sides, peripheral pulsations are intact on both sides ERADICATOR: No focal neurological deficits, no motor and sensory weakness in all 4 extremities, could move all 4 extremities Musculoskeletal: No joint swelling, deformities, inflammations, and no scoliosis and back tenderness Skin: No active skin lesions and rashes Discharge instructions: -please return to the ER For any emergency situations including vomiting of the blood or any black colored spotted vomitus, black tarry stool and any uncontrolled bleeding per rectum with the symptoms of generalized declining weakness fatigue and palpitations, dizziness and lightheadness, chest pain pressure and discomfort etc -Please continue following up with PCP and GI for further manaagement including monitoring and rechekcing CBC CMP etc and -continue taking the PO Protonix 40 mg twice daily for 1 month followed by the PO once daily for another month and follow up with GI. -Stopped any blood thinners including Aspirin for now Resident MD attestation: Patient was seen, examined and discussed with attending MD, Dr. Kandi SANTIAGO MD Internal Medicine Resident, PGY2 [facility] *Problems/Diagnosis: (1) GI bleed Status: Resolved Total Time Spent on D/C: > 30 Minutes Date of Service: Aug 25, 2024 Billing Provider: ASIM BAKER MD, TIN, RES Aug 25, 2024 11:14
[2024-08-25 11:33] LABS: HEMATOCRIT 25.3 % (42.0-52.0); HEMOGLOBIN 8.3 g/dl (14.0-17.9); MEAN CORPUSCULAR HEMOGLOBIN 28.5 PG (27.0-31.0); MEAN CORPUSCULAR HGB CONC 32.8 g/dL (33.0-36.5); MEAN CORPUSCULAR VOLUME 86.9 FL (78-98); MEAN PLATELET VOLUME 7.8 FL (7.4-10.4); PLATELET COUNT 188 X10'3 (140-440); RED BLOOD COUNT 2.91 X10'6 (4.70-6.10); RED CELL DISTRIBUTION WIDTH 16.8 % (11.5-14.5); WHITE BLOOD COUNT 3.1 X10'3 (4.5-11.0)
[2024-08-26] MEDS ORDERED: chloestyramine/aspartame 4gm packet PO SCH (08:00)
== END 2024-08-25 12:10 | disposition home or self-care (01) | DRG 378 ==
LOC: ER 10:47 → ED HOLD 14:52 → ORTHO 4S 21:08
PROVIDERS: ADMIT Family Medicine; ATTEND Family Medicine
PROC: [UNRECOGNIZED PROCEDURE] (2024-08-24)
PROC: 0DJD8ZZ Inspection of Lower Intestinal Tract, Via Natural or Artificial Opening Endoscopic (ICD-10-PCS; 2024-08-24)
PROC: 0DB68ZX Excision of Stomach, Via Natural or Artificial Opening Endoscopic, Diagnostic (ICD-10-PCS; principal; 2024-08-24 13:45)
DX: K92.2 Gastrointestinal hemorrhage, unspecified (principal); D62 Acute posthemorrhagic anemia; Z66 Do not resuscitate; R73.9 Hyperglycemia, unspecified; D72.819 Decreased white blood cell count, unspecified; K64.9 Unspecified hemorrhoids; E03.9 Hypothyroidism, unspecified; E78.5 Hyperlipidemia, unspecified; R19.5 Other fecal abnormalities; Z79.82 Long term (current) use of aspirin; Z92.21 Personal history of antineoplastic chemotherapy; Z90.49 Acquired absence of other specified parts of digestive tract; Z85.53 Personal history of malignant neoplasm of renal pelvis; Z90.5 Acquired absence of kidney; T39.015A Adverse effect of aspirin, initial encounter; Y92.89 Other specified places as the place of occurrence of the external cause; Z79.02 Long term (current) use of antithrombotics/antiplatelets
CPT/HCPCS: 36415; 43239; 45378; 71045; 80048; 80053; 80061; 82272; 83036; 83735; 83880; 84100; 84439; 84443; 84484; 85025; 85027; 85610; 85730; 87081; 88305; 93005; 97116; 97161; 97530; 99285; G0378; J2003; J2250; J2470; J2704; J3010; J7030; J7120